=== PATIENT | female | born 1930 | race Caucasian/White ===

== ENCOUNTER 2018-12-03 11:29 | Outpatient (CLI) | payer MEDICARE, OTHER ==
[2018-12-03 12:03] LABS: BASOPHILS % 0.6 (0.0-1.5); MEAN CORPUSCULAR HEMOGLOBIN 30.6 pg (28.0-34.0); MONOCYTES % 7.8 % (0.0-11.0); NEUTROPHILS # 5.4 # k/uL (1.4-7.7)
[2018-12-03 12:39] LABS: eGFR (Non-African) > 60
== END 2018-12-03 11:32 ==
LOC: LAB 11:29
PROVIDERS: ATTEND Family Medicine
DX: D50.8 Other iron deficiency anemias (principal); I10 Essential (primary) hypertension; Z86.73 Personal history of transient ischemic attack (TIA), and cerebral infarction without residual deficits
CPT/HCPCS: 36415; 80053; 80061; 85025

== ENCOUNTER 2018-12-24 12:57 | Outpatient (CLI) | payer MEDICARE ==
--- NOTE | 2018-12-24 22:46 | Diagnostic Imaging Report ---
RASHEL ÁLVAREZ [facility] [address] [facility] [address] [place] [address]. [id number] Report Submission Date: Dec 24, 2018 4:56:51 PM CDT Patient Study Name: LUIS BENITES Date: Dec 24, 2018 1:13:12 PM CDT Modality Type: CT\SR Gender: F Description: CT C-SPINE W/O CONTRAS : [birth year] Institution: [facility] Physician: RASHEL ÁLVAREZ CT cervical spine Date of examination: December 24, 2018 CLINICAL HISTORY: CT C-SPINE, NUMBNESS AND TINGLING OF LEFT ARM X3 DAYS, NO KNOWN INJURY (Hx) / ITS.REASON numbness and tingling of left arm and leg Note time : 12/24/2018 1:57:15 PM User : Bianca Ferguson CT C-SPINE, NUMBNESS AND TINGLING OF LEFT ARM X3 DAYS, NO KNOWN INJURY (DICOM Hx) TECHNIQUE: 2.5 mm contiguous axial images of the cervical spine with sagittal and coronal reconstructions. FINDINGS: Intracranial atherosclerotic vascular calcification is present. The ring of C1 and C2 are intact. Anterior subluxation of C2 on C3 is present. There is fusion of the C3/4 C4/C5 and C5/C6 disc spaces. Disc space narrowing is present at C6/C7 and C7/ T1. Spurs encroach on multiple neural foramen. There is borderline spinal stenosis at C4/C5. Spinal stenosis is present at C6/C7 and C7/T1. 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
== END 2018-12-24 13:00 ==
LOC: RAD 12:57
PROVIDERS: ATTEND Family Medicine
DX: M48.02 Spinal stenosis, cervical region (principal); M47.892 Other spondylosis, cervical region; R20.0 Anesthesia of skin; R20.2 Paresthesia of skin
CPT/HCPCS: 72125

== ENCOUNTER 2018-12-30 17:42 | Emergency (ER) | payer MEDICARE, OTHER ==
[2018-12-30] MEDS ORDERED: HYDROcodone /APAP 5/325 1 EACH TABLET PO ONE (21:27)
--- NOTE | 2018-12-30 21:31 | ED Physician Documentation ---
Low Back Pain - HPI Stated Complaint: left leg pain, neck pain Chief Complaint: Low Back Pain/ Injury Additional Information: Patient presents to ED with chronic neck and back pain. Patient has significant spinal stenosis and has been on gabapentin and other pain medications, however, they have been discontinued due to dizziness. Patient saw Dr. Reeder last week and a CT C-Spine was ordered. The patient states she did not get those results. Now she is having low back pain with radiation down her left leg. History: neck pain, back pain Onset: days ago Duration: continues in ED Recent Injury: No Where: home Other Injuries: neck, back Severity: moderate Quality: burning, sharp, similar- prior back pain Associated Symptoms: denies: fever Worsened By:: nothing Further Comments: no - ROS CONST: no problems CVS/RESP: none EYES/ENT: none MS/SKIN/LYMPH: neck pain Neuro/Psych: denies: headache GI/: denies: abdominal pain - PAST HX Past History: back pain Surgeries/Procedures: none Allergies/Adverse Reactions: Allergies Allergy/AdvReac Type Severity Reaction Status Date / Time cephalexin [From Keflex] Allergy Verified 12/30/18 18:08 ciprofloxacin [From Cipro] Allergy Verified 12/30/18 18:08 clindamycin Allergy Verified 12/30/18 18:08 clopidogrel [From Plavix] Allergy Verified 12/30/18 18:08 erythromycin base Allergy Verified 12/30/18 18:08 [From E-Mycin] nitrofurantoin Allergy Verified 12/30/18 18:08 [From Macrobid] Penicillins Allergy Verified 12/30/18 18:08 Sulfa (Sulfonamide Allergy Verified 12/30/18 18:08 Antibiotics) tetracycline Allergy Verified 12/30/18 18:08 Home Medications: Ambulatory Orders Medication Instructions Recorded Aspirin/Calcium Carbonate/Mag 325 mg PO BID u2 10/26/18 [Aspirin Buffered 325 Mg Tab] Cholecalciferol (Vitamin D3) 2,000 unit PO DAILY av 10/26/18 [Vitamin D3] Gabapentin 100 mg PO BID #60 capsule 12/30/18 Hydrocodone/Acetaminophen [[place] 1 each PO Q6 PRN #15 tablet 12/30/18 5-325 Tablet] - SOCIAL HX Smoking History: non-smoker Alcohol Use: none Drug Use: none - FAMILY HX Family History: none - VITAL SIGNS Vital Signs: Vital Signs Temp Pulse Resp BP Pulse Ox 98.0 F 67 20 167/94 98 12/30/18 21:49 12/30/18 21:49 12/30/18 21:49 12/30/18 21:49 12/30/18 21:49 - REVIEWED ASSESSMENTS Nursing Assessment Reviewed: Yes Vitals Reviewed: Yes ED Results Lab/Radiology - Orders Orders: ED Orders Category Date Time Status HYDROcodone /APAP 5/325 [[place] 5/325] Med 12/30/18 21:27 Discontinued 1 each PO NOW ONE Low Back Pain/Injury - Physical Exam General Appearance: alert EENT: IAN Neck: vertebral point-tendernes, muscle spasm, decreased ROM Resp/CVS: chest non-tender, breath sounds nml, heart sounds nml, no resp. distress Abdomen: non-tender Back: non-tender, vertebral point-tendernes, muscle spasm Straight Leg Raising: Positive Left Neuro/Psych: oriented x3, motor nml, sensation nml Skin: warm/dry, normal color Extremities: non-tender, no evidence of injury Discharge Clincal Impression: Chronic back pain Qualifiers: Back pain location: low back pain Back pain laterality: bilateral Sciatica presence: with sciatica Sciatica laterality: sciatica of left side Qualified Code(s): M54.42 - Lumbago with sciatica, left side Prescriptions: Gabapentin 100 mg PO BID #60 capsule Hydrocodone/Acetaminophen [[place] 5-325 Tablet] 1 each PO Q6 PRN #15 tablet PRN Reason: back pain Referrals: Antony Reeder MD [Primary Care Provider] - 2 Days Additional Instructions: 1. Take medications as prescribed. They will make you dizzy 2. Follow up with PCP within 1 week 3. Return to ER for new or worsening symptoms Condition: Stable Disposition: 01 HOME, SELF-CARE Decision to Admit: NO Date of Decison to Admit: 12/30/18 Decision Time: 21:33
[2018-12-30 21:51] VITALS: BP 167/94
== END 2018-12-30 21:49 | disposition home or self-care (01) ==
LOC: ED 17:42
DX: M54.42 Lumbago with sciatica, left side (principal)
CPT/HCPCS: 99283; A9270

== ENCOUNTER 2019-03-05 15:30 | Outpatient (CLI) | payer MEDICARE, OTHER ==
[2019-03-22 14:54] LABS: APPEARANCE,URINE CLOUDY (CLEAR); COLOR,URINE YELLOW (YELLOW); OCCULT BLOOD,URINE NEGATIVE (NEGATIVE); PH URINE 5.5 (5.0 - 8.0); UROBILINOGEN URINE 0.2 Eu (0.2-1.0)
== END 2019-03-05 15:33 ==
LOC: LAB 15:30
PROVIDERS: ATTEND Family Medicine
DX: N39.0 Urinary tract infection, site not specified (principal)
CPT/HCPCS: 81002; 87086

== ENCOUNTER 2019-03-15 14:08 | Outpatient (CLI) | payer MEDICARE, OTHER ==
--- NOTE | 2019-03-15 15:16 | Diagnostic Imaging Report ---
RASHEL ÁLVAREZ [facility] [address] [facility] [address] [place], [place]. [address] Report Submission Date: Mar 15, 2019 2:36:45 PM CDT Patient Study Name: LUIS BENITES Date: Mar 15, 2019 2:25:31 PM CDT Modality Type: CT\SR Gender: F Description: CT HEAD W/O : [birth year] Institution: [facility] Physician: RASHEL ÁLVAREZ Examination: CT head without contrast History: WEAKNESS; CONFUSION HX OF TIA Comparison exam: None available Technique: Noncontrast head CT protocol. Findings: Ventricles and sulci are prominent. Cerebrocerebellar parenchyma demonstrates periventricular low attenuation consistent with small vessel disease. No evidence for parenchymal hemorrhage. No evidence for mass or mass effect. No midline shift. No extra axial fluid collections. Partial visualization of the paranasal sinuses, mastoid air cells, orbits, skull and scalp without gross irregularity. Impression: Advanced age related changes. No acute parenchymal process. No hemorrhage. Electronically signed on Mar 15, 2019 2:36:45 PM CDT by: Austyn PATRICIA
[2019-03-15 15:17] LABS: SEGMENTED NEUTROPHILS % 79 % (39-79)
[2019-03-15 15:27] LABS: eGFR (Non-African) > 60
== END 2019-03-15 14:10 ==
LOC: LAB 14:08
PROVIDERS: ATTEND Family Medicine
DX: I10 Essential (primary) hypertension (principal); E87.1 Hypo-osmolality and hyponatremia; I63.9 Cerebral infarction, unspecified; Z86.79 Personal history of other diseases of the circulatory system
CPT/HCPCS: 36415; 70450; 80053; 85025

== ENCOUNTER 2019-03-16 06:35 | Outpatient (CLI) | payer MEDICARE, OTHER ==
[2019-03-16 09:07] LABS: SEGMENTED NEUTROPHILS % 69 % (39-79)
== END 2019-03-16 06:37 ==
LOC: LAB 06:35
PROVIDERS: ATTEND Family Medicine
DX: N39.0 Urinary tract infection, site not specified (principal)
CPT/HCPCS: 36415; 81002; 85025; 87086

== ENCOUNTER 2019-05-12 14:43 | Outpatient (CLI) | payer MEDICARE, OTHER ==
[2019-05-12 15:03] LABS: APPEARANCE,URINE CLOUDY (CLEAR); COLOR,URINE YELLOW (YELLOW); OCCULT BLOOD,URINE 3+ (NEGATIVE); PH URINE 5.5 (5.0 - 8.0); UROBILINOGEN URINE 0.2 Eu (0.2-1.0)
== END 2019-05-12 14:45 ==
LOC: LAB 14:43
PROVIDERS: ATTEND Family Medicine
DX: I10 Essential (primary) hypertension (principal); N39.0 Urinary tract infection, site not specified; E87.1 Hypo-osmolality and hyponatremia
CPT/HCPCS: 81002; 87086

== ENCOUNTER 2019-05-15 11:58 | Outpatient (CLI) | payer MEDICARE, OTHER ==
[2019-05-15 12:01] LABS: BASOPHILS % 0.6 % (0.0-1.5); NEUTROPHILS # 13.5 # k/uL (1.4-7.7)
[2019-05-15 12:02] LABS: eGFR (Non-African) 43
== END 2019-05-15 12:00 ==
LOC: LAB 11:58
PROVIDERS: ATTEND Nurse Practitioner Family
DX: N39.0 Urinary tract infection, site not specified (principal); R74.0 Nonspecific elevation of levels of transaminase and lactic acid dehydrogenase [LDH]
CPT/HCPCS: 80053; 85025

== ENCOUNTER 2019-05-15 15:30 | Emergency (ER) | payer MEDICARE, OTHER ==
[2019-05-15] MEDS ORDERED: 0.9 % SODIUM CHLORIDE 500 ML IV ONE (15:36)
--- NOTE | 2019-05-15 16:06 | ED Physician Documentation ---
General Adult - HISTORIAN Historian: patient - HPI Chief Complaint: Altered Mental Status Additional Information: Patient is an 88-year-old female who presents to the ER via [facility]. Per [employer] "resident began to be confused and lethargic at supper last night. She was unable to answer simple questions appropriately or keep her eyes open for any amount of time. 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 At this time family was notified and her son Kaushik came to see her and by the time he arrived she was feeling better and could articulate that she did not want to go to ER." I was notified last night while senior front end engineer and ordered lab work. Patient has been receiving treatment for a UTI with Cipro and Benadryl (due to allergy). According to [employer] "patient is still lethargic this morning and patient stated she didnt feel right". Upon arrival to ER patient is alert and oriented- answers most questions appropriately. She denies being ill- does not know why she was sent here. She c/o right hip pain. Onset: days ago Timing: better Severity: mild Modifying Factors: UTI - ROS CONST: weakness EYES/ENT: none CVS/RESP: none GI/: problems urinating MS/SKIN/LYMPH: none NEURO/PSYCH: difficulty walking, difficulty with speech - PAST HX Past History: hypertension, other (cervical spondylosis, peripheral neuropathy) Other History: other (osteoarthritis, vascular calcification, CAD, GERD, HLD, Overactive bladder, ) Surgeries/Procedures: hysterectomy, other (cervical vertebral fusion, cataract, tonsils, Right total shoulder replacement, pacemaker, bladder suspension) Allergies/Adverse Reactions: Allergies Allergy/AdvReac Type Severity Reaction Status Date / Time cephalexin [From Keflex] Allergy Verified 05/15/19 16:08 ciprofloxacin [From Cipro] Allergy Verified 05/15/19 16:08 clindamycin Allergy Verified 05/15/19 16:08 clopidogrel [From Plavix] Allergy Verified 05/15/19 16:08 erythromycin base Allergy Verified 05/15/19 16:08 [From E-Mycin] nitrofurantoin Allergy Verified 05/15/19 16:08 [From Macrobid] Penicillins Allergy Verified 05/15/19 16:08 Sulfa (Sulfonamide Allergy Verified 05/15/19 16:08 Antibiotics) tetracycline Allergy Verified 05/15/19 16:08 Home Medications: Ambulatory Orders Medication Instructions Recorded Aspirin/Calcium Carbonate/Mag 325 mg PO BID u2 10/26/18 [Aspirin Buffered 325 Mg Tab] Cholecalciferol (Vitamin D3) 2,000 unit PO DAILY av 10/26/18 [Vitamin D3] Acetaminophen [Tylenol] 650 mg PO Q4H PRN 05/15/19 Budesonide [Pulmicort] 0.5 mg IH BID 05/15/19 Docusate Sodium [Laxa Basic 100] 200 mg PO BID 05/15/19 Esomeprazole Magnesium [Nexium] 40 mg PO DAILY 05/15/19 Gabapentin 200 mg PO TID 05/15/19 Lidocaine [Lidocaine Pain Relief] 1 each TP DAILY 05/15/19 Solifenacin Succinate 5 mg PO DAILY 05/15/19 amLODIPine BESYLATE [Norvasc] 10 mg PO HS 05/15/19 oxyCODONE HCL/ACETAMINOPHEN 1 each PO Q12 PRN 05/15/19 [Percocet 5-325] - SOCIAL HX Smoking History: non-smoker Alcohol Use: none Drug Use: none - FAMILY HX Family History: No - VITAL SIGNS Vital Signs: Vital Signs Temp Pulse Resp BP Pulse Ox 167/94 12/30/18 21:49 - REVIEWED ASSESSMENTS Nursing Assessment Reviewed: Yes Vitals Reviewed: Yes Progress - Progress Progress: 17:00 Spoke with PCP- patient was on cipro with benadryl for UTI (d/t multiple allergies); UA report shows resistance to cipro; discussed giving Macrobid with benadryl and monitoring patient closely. ED Results Lab/Radiology - Orders Orders: ED Orders Category Date Time Status Place IV Lock 1T Care 05/15/19 15:36 Active BLOOD CULTURE Stat Lab 05/15/19 Ordered CBC/PLATELET/DIFF Routine Lab 05/15/19 15:35 Ordered CMP Routine Lab 05/15/19 Ordered LACTATE Stat Lab 05/15/19 Ordered 0.9 % Sodium Chloride [Normal Saline] 500 ml Med 05/15/19 15:36 Active IV NOW General Adult Physical Exam - PHYSICAL EXAM GENERAL APPEARANCE: no distress EENT: eye inspection normal, ENT inspection normal, dry mucous membranes NECK: normal inspection, supple RESPIRATORY: chest non-tender, breath sounds normal CVS: heart sounds normal, equal pulses, no JVD ABDOMEN: soft, normal bowel sounds SKIN: warm/dry, normal color EXTREMITIES: non-tender NEURO: CN's nml as tested, motor nml, sensation nml, mood/affect nml, cognition normal Discharge Clincal Impression: Urinary tract infection, Dehydration Referrals: Antony Reeder MD [Primary Care Provider] - 2 Days Additional Instructions: Start patient on Macrobid 100mg by mouth twice a day for 10 days Give Benadryl with Macrobid Try to encourage fluids Follow up with PCP in 1-2 weeks Condition: Good Disposition: 04 XF HALF-WAY Decision to Admit: NO Decision Time: 18:05 ([facility])
[2019-05-15 16:29] LABS: BASOPHILS % 0.6 % (0.0-1.5); NEUTROPHILS # 12.5 # k/uL (1.4-7.7)
[2019-05-15 16:46] LABS: eGFR (Non-African) 41
[2019-05-15] MEDS ORDERED: diphenhydrAMINE HCL 25 MG TABLET PO ONE (16:59)
[2019-05-15] MEDS ORDERED: NITROFURANTOIN MONO/MACRO 100 MG CAPSULE PO ONE (16:59)
[2019-05-15 18:31] VITALS: BP 110/74
== END 2019-05-15 18:27 ==
LOC: ED 15:30
DX: N39.0 Urinary tract infection, site not specified (principal); E86.0 Dehydration
CPT/HCPCS: 80053; 83605; 85025; 87040; 96360; 99284; J7060; Q0163; S1016

== ENCOUNTER 2019-07-02 08:00 | Outpatient (CLI) | payer MEDICARE, OTHER ==
[2019-07-13 08:19] LABS: APPEARANCE,URINE CLOUDY (CLEAR); COLOR,URINE BROWN (YELLOW); OCCULT BLOOD,URINE NEGATIVE (NEGATIVE); PH URINE 8.5 (5.0 - 8.0); UROBILINOGEN URINE 0.2 Eu (0.2-1.0)
== END 2019-07-02 08:05 ==
LOC: LAB 08:00
PROVIDERS: ATTEND Family Medicine
DX: N39.0 Urinary tract infection, site not specified (principal); B96.20 Unspecified Escherichia coli [E. coli] as the cause of diseases classified elsewhere
CPT/HCPCS: 81002; 87086; 87186

== ENCOUNTER 2019-07-13 15:22 | Outpatient (CLI) | payer MEDICARE, OTHER ==
[2019-07-13 16:43] LABS: BASOPHILS % 0.4 % (0.0-1.5); eGFR (Non-African) 14
== END 2019-07-13 15:27 ==
LOC: LAB 15:22
PROVIDERS: ATTEND Family Medicine
DX: E78.5 Hyperlipidemia, unspecified (principal); I10 Essential (primary) hypertension; E87.1 Hypo-osmolality and hyponatremia
CPT/HCPCS: 36415; 80053; 85025; P9603

== ENCOUNTER 2019-08-17 09:32 | Outpatient (CLI) | payer MEDICARE, OTHER ==
[2019-08-17 09:38] LABS: APPEARANCE,URINE CLOUDY (CLEAR); COLOR,URINE YELLOW (YELLOW); OCCULT BLOOD,URINE 3+ (NEGATIVE); PH URINE 5.5 (5.0 - 8.0); UROBILINOGEN URINE 0.2 Eu (0.2-1.0)
== END 2019-08-17 09:37 ==
LOC: LAB 09:32
PROVIDERS: ATTEND Family Medicine
DX: N39.0 Urinary tract infection, site not specified (principal)
CPT/HCPCS: 81002; 87086; 87186